=== PATIENT | male | born 1975 | race Caucasian/White ===

== ENCOUNTER 2018-04-05 11:30 | Emergency (ER) | payer BC, OTHER ==
[2018-04-05] MEDS ORDERED: Adacel (T-DAP) 0.5 ML VIAL ONE (12:10)
== END 2018-04-05 12:25 | disposition home or self-care (01) ==
LOC: BURERS 11:30
DX: S81.812A Laceration without foreign body, left lower leg, initial encounter (principal); E78.00 Pure hypercholesterolemia, unspecified; I10 Essential (primary) hypertension; Z87.891 Personal history of nicotine dependence; Z79.899 Other long term (current) drug therapy; W26.8XXA Contact with other sharp object(s), not elsewhere classified, initial encounter
CPT/HCPCS: 12002; 90471; 90715

== ENCOUNTER 2025-09-03 08:02 | Emergency (ER) | payer BC ==
[2025-09-03 08:49] LABS: Glucose, Urine (Dipstick) Negative (Negative); Leukocyte Negative (Negative); Protein, Urine (Dipstick) Trace mg/dL (Neg-Trace); Specific Gravity, Urine 1.020 (1.005-1.030)
[2025-09-03 08:52] LABS: ALT (SGPT) 53 U/L (Less than 45); AST (SGOT) 35 U/L (11-34); Albumin 4.0 g/dL (3.1-4.5); Alkaline Phosphatase 43 U/L (40-110); Anion Gap 17 mmol/L (10-20); BUN (Urea Nitrogen) 10 mg/dL (8.4-25.7); Bilirubin, Total 1.5 mg/dL (0.3-1.2); Calc. Creatinine Clearance 0 mL/min (70-130); Calcium 9.5 mg/dL (7.8-10.44); Carbon Dioxide 22 mmol/L (22-29); Chloride 101 mmol/L (98-107); Globulin 3.9 g/dL (2.4-3.5); Glucose 129 mg/dL (70-105); Potassium 3.3 mmol/L (3.5-5.1); Sodium 137 mmol/L (136-145)
[2025-09-03 09:00] LABS: Bacteria/HPF None Seen HPF (None Seen); CAUTI Indications for Culture Pelvic or flank pain; RBC/HPF 0-3 HPF (0-3); WBC/HPF None Seen HPF (0-3)
[2025-09-03 09:01] LABS: Urine Culture Reflex No No
[2025-09-03 09:04] LABS: Hematocrit 44.4 % (42.0-52.0); Hemoglobin 15.3 g/dL (14.0-18.0); Mean Corpuscular Hemoglobin 31.1 pg (27.0-31.0); Mean Corpuscular Volume 90.1 fl (78.0-98.0); Platelet Count 272 10x3/uL (130-400); Red Blood Cell (RBC) Count 4.93 mill/uL (4.70-6.10); White Blood Cell (WBC) Count 13.0 10x3/uL (4.8-10.8)
[2025-09-03 09:08] LABS: MDiff Complete? YES; Nucleated RBC (Manual Ct) 2 % (0)
[2025-09-03] MEDS ORDERED: Iopamidol 370 76% 100 ML VIAL ONE (09:44)
[2025-09-03] MEDS ORDERED: Amoxicillin/Potassium Clav 875 MG TAB ONE (10:39)
== END 2025-09-03 10:44 | disposition home or self-care (01) ==
LOC: BURERS 08:02
DX: K57.20 Diverticulitis of large intestine with perforation and abscess without bleeding (principal); R93.89 Abnormal findings on diagnostic imaging of other specified body structures; E78.00 Pure hypercholesterolemia, unspecified; I10 Essential (primary) hypertension; Z79.899 Other long term (current) drug therapy; Z87.891 Personal history of nicotine dependence
CPT/HCPCS: 74177; 80053; 81001; 85025; Q9967